=== PATIENT | male | born 1985 | race Caucasian/White ===

== ENCOUNTER 2018-11-25 12:11 | Emergency (ER) | payer OTHER ==
--- NOTE | 2018-11-25 12:44 | RAD ---
EXAM: Single view of the abdomen HISTORY: Patient swallowed 3 razor blades in the middle of the night. COMPARISON: None FINDINGS: Single view of the abdomen shows a nonspecific, nonobstructive bowel gas pattern. The upper abdomen is excluded. No obvious radiopaque foreign body is seen. No suspicious calcifications are seen. The bones are unremarkable. IMPRESSION: No obvious radio opaque foreign body seen in the abdomen. The upper abdomen is excluded.
--- NOTE | 2018-11-25 12:49 | RAD ---
CHEST TWO VIEWS: HISTORY: Ingested foreign body. FINDINGS: Lungs are clear. Heart and mediastinum unremarkable. Osseous structures unremarkable. No radiopaque f oreign body identified. IMPRESSION: No acute findings. POS: OFF
--- NOTE | 2018-11-25 13:01 | RAD ---
EXAM: Supine abdomen: INDICATIONS: Ingested foreign body COMPARISON: Exam earlier FINDINGS: Current exam includes the upper abdomen. There are 2 radiopaque foreign bodies overlying th e left upper quadrant consistent with ingested razor blades. Bowel gas pattern otherwise unremarkable. IMPRESSION: Ingested foreign bodies overlie left upper quadrant
[2018-11-25 14:01] LABS: #Basophils 0.2 thou/uL (0.0-0.2); #Eosinphils 0.2 thou/uL (0.0-0.7); #Lymphocytes 1.7 thou/uL (1.20-3.40); #Monocytes 0.4 thou/uL (0.11-0.59); #Neutrophils 5.1 thou/uL (1.40-6.50); %Eosinophils 2.2 % (0.0-10.0); %Lymphocytes 22.1 % (21.0-51.0); %Monocytes 5.7 % (0.0-10.0); Hemoglobin 15.6 g/dL (14.0-18.0); Mean Corpuscular HGB CONC 33.3 g/dL (32.0-36.0); Mean Corpuscular Volume 84.1 fL (78.0-98.0); Mean Platelet Volume 5.4 fL (7.4-10.4); Platelet Count 313 thou/uL (130-400); RBC Distribution Width 10.9 % (11.5-14.5); White Blood Cell (WBC) Count 7.5 thou/uL (4.8-10.8)
[2018-11-25 14:20] LABS: INR-International Normal Ratio 1.1; Prothrombin Time 14.4 SEC (12.0-14.7)
[2018-11-25 14:21] LABS: PTT 35.4 SEC (22.9-36.1)
[2018-11-25 14:36] LABS: ALT (SGPT) 19 U/L (8-55); AST (SGOT) 19 U/L (5-34); Albumin 4.8 g/dL (3.5-5.0); Alkaline Phosphatase 63 U/L (40-110); Anion Gap 16 mmol/L (10-20); BUN (Urea Nitrogen) 9 mg/dL (8.9-20.6); Bilirubin, Total 0.5 mg/dL (0.2-1.2); Calc. Creatinine Clearance 0 mL/min (70-130); Calcium 9.7 mg/dL (7.8-10.44); Carbon Dioxide 25 mmol/L (22-29); Chloride 102 mmol/L (98-107); Estimated GFR-MDRD Greater than 90; Globulin 3.4 g/dL (2.4-3.5); Glucose 115 mg/dL (70-105); Potassium 4.2 mmol/L (3.5-5.1); Protein, Total 8.2 g/dL (6.0-8.3); Sodium 139 mmol/L (136-145)
== END 2018-11-25 15:31 | disposition short-term general hospital (02) ==
LOC: NAV ERS 12:11
DX: T18.2XXA Foreign body in stomach, initial encounter (principal); I10 Essential (primary) hypertension; F32.9 Major depressive disorder, single episode, unspecified; Z87.891 Personal history of nicotine dependence; Z79.899 Other long term (current) drug therapy
CPT/HCPCS: 71046; 74018; 80053; 85025; 85610; 85730; 99285